=== PATIENT | male | born 1980 | race Caucasian/White ===

== ENCOUNTER 2019-05-18 16:02 | Emergency (ER) | payer OTHER ==
[~2019-05-18] VITALS: Ht 170.2 cm; Wt 110.0 kg
[2019-05-18 16:24] VITALS: BP 132/96
== END 2019-05-18 21:07 | disposition left against medical advice (07) ==
LOC: ER 16:02
DX: Z53.21 Procedure and treatment not carried out due to patient leaving prior to being seen by health care provider (principal)